=== PATIENT | female | born 1960 | race American Indian/Alaskan Native ===

== ENCOUNTER → 2019-05-23 10:01 | Outpatient (CLI) | payer OTHER, SELFPAY ==
--- NOTE | 2019-05-23 | DI.CT.S_ITS ---
PROCEDURE: CT ABDOMEN PELVIS WO/W CON INDICATIONS: Asymptomatic microscopic hematuria TECHNIQUE: Optional 5 mm thick noncontrast images acquired from the diaphragm to the symphysis pubis. After the administration of intravenous contrast, 5 mm thick images acquired from the diaphragm to the symphysis pubis after a 10-minute delay. 2 mm thick coronal and sagittal reformats were then performed of the kidneys and ureters. For radiation dose reduction, the following was used: automated exposure control, adjustment of mA and/or kV according to patient size. COMPARISON: None. FINDINGS: Image quality: Excellent. Lung bases: Lung bases are clear. Heart size is normal. Urinary system: Both kidneys are normal in size, without hydronephrosis or nephrolithiasis on pre-contrast images. No perinephric fat stranding. There is normal bilateral renal enhancement. Renal calyces appear normal in morphology when filled with contrast. Opacified portions of both ureters demonstrate normal caliber. Bladder wall thickness is normal. No calcified bladder stones. Other solid organs: Liver is normal in size and enhancement. Gallbladder is within normal limits. Biliary system is non dilated. Pancreas enhances normally. Spleen is normal in size and enhancement. Multiple small splenules are noted. No adrenal nodules. Peritoneum and bowel: Bowel loops demonstrate normal wall thickness and caliber. No free fluid or air. Appendix is visualized and is within normal limits. Sigmoid diverticulosis is seen, no CT evidence of acute diverticulitis. There is a small hiatal hernia. Nodes and vessels: No retroperitoneal or mesenteric adenopathy by size criteria. Aorta and inferior vena cava are normal in size. Abdominal wall: No ventral hernias. Pelvis: No pathologic free pelvic fluid. No inguinal hernias or adenopathy. No gross abnormality is seen in uterus and bilateral adnexa. Bones: No suspicious bony lesions. No vertebral body compression fractures. IMPRESSION: 1. No renal stone or hydronephrosis. No enhancing renal lesion. Normal appearing bilateral ureters or urinary bladder. 2. Small to moderate size hiatal hernia. No bowel obstruction. No free fluid or free air. Sigmoid diverticulosis, no CT evidence of acute diverticulitis. Dictated by: Masoud Thomas M.D. on 05/23/2019 at 14:45 Approved by: Masoud Thomas M.D. on 05/23/2019 at 14:47
== END ==
PROVIDERS: PCP Family Medicine; Visit Provider Family Medicine
DX: K44.9 Diaphragmatic hernia without obstruction or gangrene (principal)
CPT/HCPCS: 74178; Q9967

== ENCOUNTER 2019-07-13 13:29 | Emergency (ER) | payer OTHER, SELFPAY ==
[2019-07-13 13:32] VITALS: BP 95/61; PULSE 61; RESP 14; TEMP 36.2; O2SAT 97; BMI 25.6
[2019-07-13 15:00] VITALS: BP 94/68; PULSE 58; RESP 17; O2SAT 97
[2019-07-13] MEDS: KETOROLAC 60 MG/2 ML VIAL 30 MG IV (15:08)
[2019-07-13] MEDS: HYDROMORPHONE 0.5 MG INJ IV (15:08)
[2019-07-13 16:00] VITALS: BP 116/93; PULSE 57; RESP 18; O2SAT 97
--- NOTE | 2019-07-13 16:26 | ED.BACK ---
HPI - Back Pain/Injury General Chief Complaint: Back Pain/Injury Stated Complaint: Bent over and back went out Time Seen by Provider: 07/13/19 14:08 Source: patient Mode of arrival: EMS Limitations: no limitations History of Present Illness HPI Narrative: Patient complains of back pain after bending over to pull laundry out of the wash machine. She states that she felt as though her back got ?stuck? and she could not stand back up. She states she was able to get on her knees and lay on the floor. Patient denies loss of bowel or bladder control. No pain or numbness in her lower extremities. No abdominal pain or urinary issues. Patient has a history of low back problems. She states that the pain is on the right side in the lumbar region. Related Data Home Medications Medication Instructions Recorded Confirmed Probiotic 1 cap PO DAILY 07/13/19 07/13/19 Vitamin B-12 1 tab PO DAILY 07/13/19 07/13/19 Vitamin C 1 tab PO DAILY 07/13/19 07/13/19 fiber 1 tab PO DAILY 07/13/19 07/13/19 magnesium 1 tab PO DAILY 07/13/19 07/13/19 multivitamin 1 tab PO DAILY 07/13/19 07/13/19 Previous Rx's Medication Instructions Recorded hydrocodone-acetaminophen 1 tab PO Q4-6H PRN #8 tab 07/13/19 Allergies Allergy/AdvReac Type Severity Reaction Status Date / Time nitrofurantoin Allergy Verified 07/13/19 13:32 [From Macrobid] Sulfa (Sulfonamide Allergy Verified 07/13/19 13:32 Antibiotics) Review of Systems Constitutional Constitutional: Denies chills, Denies fatigue, Denies fever(s), Denies frequent falls, Denies lethargy and Denies weakness Eyes Eyes: Denies change in vision, Denies eye discharge, Denies irritation and Denies loss of vision ENT Ears, Nose, Mouth, and Throat: Denies change in voice, Denies dizziness, Denies neck pain, Denies sore throat and Denies throat swelling Cardiovascular Cardiovascular: Denies chest pain, Denies irregular heart rhythm, Denies lightheadedness, Denies palpitations, Denies dyspnea, Denies dyspnea on exertion and Denies orthopnea Respiratory Respiratory: Denies cough, Denies dyspnea, Denies dyspnea on exertion and Denies wheezing Gastrointestinal Gastrointestinal: Denies abdominal pain, Denies change in bowel habits, Denies diarrhea, Denies nausea and Denies vomiting Genitourinary Genitourinary: Denies hematuria, Denies flank pain, Denies urinary incontinence and Denies urinary urgency Musculoskeletal Musculoskeletal: Reports back pain, Denies muscle weakness, Denies neck pain, Denies numbness and Denies tingling Integumentary/Breasts Skin/Breast: Denies pruritus, Denies erythema, Denies rash and Denies wounds Neurologic Neurologic: Denies behavioral changes, Denies confusion, Denies dizziness, Denies frequent falls, Denies loss of vision, Denies numbness, Denies tingling and Denies weakness Psychiatric Psychiatric: Denies anxiety, Denies behavioral changes, Denies confusion, Denies depression, Denies homicidal ideation and Denies suicidal ideation Endocrine Endocrine: Denies fatigue, Denies flushing and Denies palpitations Hematologic/Lymphatic Hematologic/Lymphatic: Denies easy bruising Allergic/Immunologic Allergic/Immunologic: Denies urticaria, Denies throat swelling and Denies wheezing Patient History Medical History Back pain (Acute) Surgical History No pertinent past surgical history (Acute) Social History Smoking Status: Unknown if ever smoked Social History Smoking Status: Unknown if ever smoked alcohol intake frequency: holidays/special occasions only Substance Use Type: does not use Exam Initial Vital Signs Initial Vital Signs: Vital Signs Temperature 97.2 F L 07/13/19 13:32 Pulse Rate 61 07/13/19 13:32 Respiratory Rate 14 07/13/19 13:32 Blood Pressure 95/61 07/13/19 13:32 Pulse Oximetry 97 07/13/19 13:32 Const General: cooperative and well developed Nutritional Appearance: well nourished Orientation: alert, awake, oriented x3 and not confused [facility] Head: normocephalic and atraumatic Ears: external ears normal Nose: external nose normal and No nasal discharge Face and sinus: face symmetric and No dry mucous membranes Mouth: oral mucosae normal and moist mucous membranes Teeth and gingiva: dentition normal Eyes General: appearance normal, both eyes and all related structures Eyelids: eyelids normal Conjunctivae: conjunctivae normal Sclera: sclerae normal Pupils: PERRL EOM: EOM intact bilaterally Neck Neck: normal visual inspection, trachea midline, No lymphadenopathy, No midline deformity and No JVD Lymphatic: No lymphedema Chest Chest: normal inspection of the chest Resp Effort & Inspection: normal respiratory effort, able to speak in complete sentences, no respiratory distress and no use of accessory muscles Auscultation: clear to auscultation bilaterally, no rales, no rhonchi and no wheezes Cardio Rate: regular rate Rhythm: regular rhythm Heart Sounds: no click, no gallops, no murmurs and no rubs Pulses: normal peripheral pulses GI Inspection: non-distended Palpation: soft, no hepatosplenomegaly, No guarding, No pulsatile mass and No tender Auscultation: normal bowel sounds Back/Spine/Pelvis Back: No CVA tenderness Cervical Spine: cervical ROM normal and No pain with cervical ROM Other: No tenderness or step-off at any level the spine. Patient has tenderness over her right paraspinal musculature in the lumbar region. Skin General: no rashes or lesions noted, No jaundice and No petechiae Neuro General: alert, oriented x3, gait normal and no focal motor deficits Speech: speech normal Extrem General: full ROM, no clubbing, cyanosis or edema, no pedal edema and no calf tenderness Psych Appearance: well kempt Mental Status: mental status grossly normal Attitude: cooperative Thought Content: normal and suicidality Judgment: judgment good Course Course Course Narrative: Patient was treated symptomatically in the emergency department, after which found to be feeling better. We have discussed home management of symptoms, as well as the usual indications for return. I do not find evidence of an emergent cause or complication of the patient's back pain. Orders Ordered: Discontinued Medications Cyclobenzaprine HCl (Flexeril) 10 mg PO NOW ONE Stop: 07/13/19 16:33 Last Admin: 07/13/19 16:55 Dose: 10 mg Documented by: ROHINI Hydromorphone HCl (Dilaudid) 0.5 mg IV NOW ONE Stop: 07/13/19 14:51 Last Admin: 07/13/19 15:08 Dose: 0.5 mg Documented by: KBARNHA Hydromorphone HCl (Dilaudid) 0.5 mg IV NOW ONE Stop: 07/13/19 16:33 Last Admin: 07/13/19 16:58 Dose: Not Given Documented by: ROHINI Hydromorphone HCl (Dilaudid) 0.5 mg IM NOW ONE Stop: 07/13/19 16:57 Last Admin: 07/13/19 16:57 Dose: 0.5 mg Documented by: ROHINI Ketorolac Tromethamine (Toradol) 30 mg IV NOW ONE Stop: 07/13/19 14:51 Last Admin: 07/13/19 15:08 Dose: 30 mg Documented by: ROHINI Vital Signs Vital signs: Vital Signs - 8 hr 07/13/19 13:32 07/13/19 15:00 07/13/19 16:00 Temperature 97.2 F L Pulse Rate 61 58 L 57 L Respiratory Rate 14 17 18 Blood Pressure 95/61 Blood Pressure [Left Arm] 94/68 116/93 H Pulse Oximetry 97 97 97 07/13/19 17:00 Temperature Pulse Rate 56 L Respiratory Rate 16 Blood Pressure Blood Pressure [Left Arm] 127/77 Pulse Oximetry 97 MDM - Back Pain/Injury Medical Records Attestation: I reviewed the patient's medical records. Discharge Plan Departure Patient Disposition: Home Clinical Impression: Strain of lumbar region Qualifiers: Encounter type: initial encounter Qualified Code(s): S39.012A - Strain of muscle, fascia and tendon of lower back, initial encounter Discharge Date/Time: 07/13/19 17:30 Instructions: DI for Back Strain or Sprain Prescriptions: New hydrocodone-acetaminophen 5-325 mg tablet 1 tab PO Q4-6H PRN (Reason: pain) Qty: 8 RF: 0 No Action multivitamin Tablet 1 tab PO DAILY RF: 0 Probiotic 1 cap PO DAILY RF: 0 Vitamin B-12 1 tab PO DAILY RF: 0 Vitamin C 1 tab PO DAILY RF: 0 fiber 1 tab PO DAILY RF: 0 magnesium 1 tab PO DAILY RF: 0 Referrals: Swetha Gary MD [Primary Care Provider] -
[2019-07-13] MEDS: CYCLOBENZAPRINE 10 MG TABLET PO (16:55)
[2019-07-13] MEDS: HYDROMORPHONE 1 MG INJ 0.5 MG IM (16:57)
[2019-07-13 17:00] VITALS: BP 127/77; PULSE 56; RESP 16; O2SAT 97
== END 2019-07-13 17:30 | disposition home or self-care (01) ==
PROVIDERS: Emergency Provider Emergency Medicine; PCP Family Medicine
DX: S39.012A Strain of muscle, fascia and tendon of lower back, initial encounter (principal); X50.1XXA Overexertion from prolonged static or awkward postures, initial encounter
CPT/HCPCS: 96372; 96374; 96375; 99283; 99284; J1170; J1885

== ENCOUNTER 2019-11-11 16:00 | Emergency (ER) | payer OTHER, SELFPAY ==
[2019-11-11 16:07] VITALS: BP 133/84; PULSE 72; RESP 18; TEMP 37; O2SAT 99; BMI 25.6
[2019-11-11 16:50] LABS: Appearance Urine UA CLOUDY; Bilirubin Urine UA NEGATIVE (NEGATIVE); Color Urine UA YELLOW; Glucose Urine UA NEGATIVE (Negative); Ketones Urine UA NEGATIVE (NEGATIVE); Leukocyte Esterase Urine UA 3+ (NEGATIVE); Nitrite Urine UA POSITIVE (Negative); Occult Blood Urine UA 2+ (Negative); Protein Urine UA TRACE (Negative); Urobilinogen Urine UA 0.2 E.U./dL (0.2)
[2019-11-11 16:51] LABS: pH Urine UA 6.5 (4.5-8.0)
[2019-11-11 16:56] LABS: Amorphous Sediment Urine 1+; Bacteria Urine Few (2-10); Culture Indicated Urine Specimen Cultured; Mucus Urine 1+ (Negative); RBC Urine 1-5/HPF (0-5/HPF); Squamous Epithelial Cell Urine 0-1 /HPF (0-5/HPF); WBC Urine >100/HPF (0-5/HPF)
[2019-11-11] MEDS: CIPROFLOXACIN 250 MG TABLET PO (19:49)
--- NOTE | 2019-11-12 03:22 | ED_ITS ---
HPI - Female Genitourinary <RANDALL Colmenares - Last Filed: 11/12/19 03:34> General Chief complaint: Urogenital-Female Stated complaint: states getting a UTI Time Seen by Provider: 11/11/19 17:22 Source: patient Mode of arrival: Family Vehicle Limitations: no limitations History of Present Illness HPI Narrative: This is a 59-year-old female, former smoker, who presents to ED with her significant other with chief complain of UTI symptoms such as suprapubic discomfort with dysuria and urinary frequency which initially started when she woke up this morning. She had taken Pyridium this morning. Patient denies fever, chills, nausea, vomiting, flank pain, urinary retention or hematuria. Patient states had recent UTI about 10 days ago and had completed Cipro for 3 days and she received a phone call from the clinic that the medication is to be changed to amoxicillin K. however after a dose patient had diarrhea and stop taking the medications. Patient has multiple allergies to antibiotic medications include patient reports nitrofurantoin, sulfa, amoxicillin, cephalexin, Clavulanic acid. Patient reports after completing 3 day course of Cipro she felt good. Patient is currently menopausal state. Reports has frequent UTI and the other UTI was about 4-5 months ago. Related Data Home Medications Medication Instructions Recorded Confirmed Probiotic 1 cap PO DAILY 07/13/19 07/13/19 Vitamin B-12 1 tab PO DAILY 07/13/19 07/13/19 Vitamin C 1 tab PO DAILY 07/13/19 07/13/19 fiber 1 tab PO DAILY 07/13/19 07/13/19 magnesium 1 tab PO DAILY 07/13/19 07/13/19 multivitamin 1 tab PO DAILY 07/13/19 07/13/19 Previous Rx's Medication Instructions Recorded hydrocodone-acetaminophen 1 tab PO Q4-6H PRN #8 tab 07/13/19 ciprofloxacin HCl [Cipro] 250 mg PO Q12H 5 Days #10 tab 11/11/19 Allergies Allergy/AdvReac Type Severity Reaction Status Date / Time clindamycin Allergy Unknown Verified 11/11/19 16:17 metronidazole Allergy Unknown Verified 11/11/19 16:17 nitrofurantoin Allergy Verified 11/11/19 16:17 [From Macrobid] Sulfa (Sulfonamide Allergy Verified 07/13/19 13:32 Antibiotics) acetaminophen [From Vicodin] AdvReac Nausea Verified 11/11/19 16:17 amoxicillin [From Augmentin] AdvReac Diarrhea Verified 11/11/19 16:14 cephalexin AdvReac Diarrhea Verified 11/11/19 16:14 clavulanic acid AdvReac Diarrhea Verified 11/11/19 16:14 [From Augmentin] hydrocodone [From Vicodin] AdvReac Nausea Verified 11/11/19 16:17 Review of Systems <Bg Slade [facility] - Last Filed: 11/12/19 03:34> Review of Systems Narrative: General: Denies fever, chills, fatigue, malaise, sweats. HEENT: Denies sinus pain, ear pain, sore throat, difficulty swallowing, dizziness. Respiratory: Denies dyspnea, cough, wheezing, hemoptysis, sputum. Cardiovascular: Denies chest pain, palpitations, orthopnea, edema. Gastrointestinal: Denies nausea, vomiting, (+) suprapubic pain, abdominal pain, diarrhea, constipation, melena. : See HPI Musculoskeletal: Denies weakness, joint pain or bony pain. Skin: Denies rash, skin lesions, or other. Neurologic: Denies weakness, headache, numbness, change in speech, confusion, seizures, incoordination. Psychiatric: No concerning psychosocial issues. 12-point review of systems is negative except for those stated above. Patient History <Bg Slade [facility] - Last Filed: 11/12/19 03:34> alcohol intake frequency: 0-2 drinks per day Substance Use Type: does not use Exam <Bg Slade [facility] Last Filed: 11/12/19 03:34> Narrative Exam Narrative: General appearance: well developed, well nourished, in no acute distress. Head: normocephalic, atraumatic, no scalp lesions, non-tender. ENT: Mucous membrane moist, no mucosal lesion. Throat without erythema, tonsillar hypertrophy or exudate. Uvula in midline, airway patent. Neck/Thyroid: neck supple, full range of motion, no visible masses or meningeal signs. No JVD, non-tender without lymphadenopathy. Skin: no suspicious rashes, lesions over visible areas. Warm and dry and appropriate color for ethnicity. Heart: no clubbing, no cyanosis, no edema. S1 and S2 normal. RRR w/o murmurs, clicks, or bruits. Lungs: Breathing even and unlabored. No stridor. No accessory muscles used. Able to speak in full sentences. Chest: normal shape and expansion. Abdomen: Mild suprapubic tenderness to palpate. Non-obese, non-distended. Back: No spine tenderness, no CVA tenderness to percuss. Neurologic: alert and oriented. Cognitive exam, [employer] and PNS grossly intact on informal exam. Psych: good eye contact, normal affect. Initial Vital Signs Initial Vital Signs: Vital Signs Temperature 98.6 F 11/11/19 16:07 Pulse Rate 72 11/11/19 16:07 Respiratory Rate 18 11/11/19 16:07 Blood Pressure 133/84 11/11/19 16:07 Pulse Oximetry 99 11/11/19 16:07 <Ori Alfaro DO - Last Filed: 11/12/19 06:12> Initial Vital Signs Initial Vital Signs: Vital Signs Temperature 98.6 F 11/11/19 16:07 Pulse Rate 72 11/11/19 16:07 Respiratory Rate 18 11/11/19 16:07 Blood Pressure 133/84 11/11/19 16:07 Pulse Oximetry 99 11/11/19 16:07 Scores <RANDALL Colmenares - Last Filed: 11/12/19 03:34> GCS [place] coma scale eye opening: Spontaneous [place] coma scale verbal response: Orientated Jaden coma scale motor response: Obey commands [place] coma scale total score: 15 Course <RANDALL Colmenares - Last Filed: 11/12/19 03:34> Orders Ordered: Discontinued Medications Ciprofloxacin (Cipro) 250 mg PO NOW ONE Stop: 11/11/19 19:33 Last Admin: 11/11/19 19:49 Dose: 250 mg Documented by: KANU <Ori Alfaro DO - Last Filed: 11/12/19 06:12> Orders Ordered: Discontinued Medications Ciprofloxacin (Cipro) 250 mg PO NOW ONE Stop: 11/11/19 19:33 Last Admin: 11/11/19 19:49 Dose: 250 mg Documented by: KANU MDM - Female Genitourinary <RANDALL Colmenares - Last Filed: 11/12/19 03:34> Differential Diagnosis Differential diagnosis: Likely urinary tract infection and other (Pyelonephritis) Medical Records Attestation: I reviewed the patient's medical records. Lab Data Attestation: I reviewed the patient's lab results. Labs: Lab Results 11/11/19 Range/Units 16:35 Urine Color Yellow Urine Appearance Cloudy Urine pH 6.5 (4.5-8.0) Ur Specific [place] 1.010 (1.000-1.035) Urine Protein Trace H (Negative) Urine Glucose (UA) Negative (Negative) g/dL Urine Ketones Negative (NEGATIVE) Urine Occult Blood 2+ H (Negative) Urine Nitrate Positive (Negative) Urine Bilirubin Negative (NEGATIVE) Urine Urobilinogen 0.2 (0.2) E.U./dL Ur Leukocyte Esterase 3+ H (NEGATIVE) Urine RBC 1-5/hpf (0-5/HPF) Urine WBC >100/hpf H (0-5/HPF) Ur Squamous Epith Cells 0-1 /hpf (0-5/HPF) Amorphous Sediment 1+ Urine Bacteria Few (2-10) H (None) Urine Mucus 1+ H (Negative) Ur Culture Indicated? Specimen cultured MDM Narrative Medical decision making narrative: UA showed positive trace protein, 2+ occult blood, 3+ urine leukocyte esterase, and positive nitrate. Urine WBC was greater than 100/hpf with urine bacteria and mucus. Urine was yellow and cloudy in appearance. Urine culture is pending at this time. Patient does not appears to be toxic, afebrile with stable vital signs. Due to patient has multiple antibiotic medications to treat UTI, patient discharged to home with Cipro for 5 day course and is informed patient will get a phone call with the culture result if patient needs different antibiotic medication coverage. We do not have previous urine culture results in our record since patient 6 her care at [facility]. Return precautions were discussed with patient and verbalized understanding and in agree mental with the treatment plan. <Ori Alfaro, - Last Filed: 11/12/19 06:12> Lab Data Labs: Lab Results 11/11/19 Range/Units 16:35 Urine Color Yellow Urine Appearance Cloudy Urine pH 6.5 (4.5-8.0) Ur Specific [place] 1.010 (1.000-1.035) Urine Protein Trace H (Negative) Urine Glucose (UA) Negative (Negative) g/dL Urine Ketones Negative (NEGATIVE) Urine Occult Blood 2+ H (Negative) Urine Nitrate Positive (Negative) Urine Bilirubin Negative (NEGATIVE) Urine Urobilinogen 0.2 (0.2) E.U./dL Ur Leukocyte Esterase 3+ H (NEGATIVE) Urine RBC 1-5/hpf (0-5/HPF) Urine WBC >100/hpf H (0-5/HPF) Ur Squamous Epith Cells 0-1 /hpf (0-5/HPF) Amorphous Sediment 1+ Urine Bacteria Few (2-10) H (None) Urine Mucus 1+ H (Negative) Ur Culture Indicated? Specimen cultured Discharge Plan Departure Patient Disposition: Home Clinical Impression: Urinary tract infection Qualifiers: Urinary tract infection type: site unspecified Hematuria presence: with hematuria Qualified Code(s): N39.0 - Urinary tract infection, site not specified Discharge Date/Time: 11/11/19 19:52 Instructions: DI for Urinary Tract Infection (UTI) Activity Restrictions/Additional Instructions: You have been diagnosed with [UTI. Urine culture is pending at this time. Since he had multiple medication allergies to antibiotic medication will treat you with Cipro at this time. You will get a phone call from us if this medication is not appropriate for the coverage.]. What to do: *Take your medications as directed. Please hydrate adequately. You can take Pyridium that you have at home for discomfort with urination. *Follow up with your primary care provider in 2-3 days, call for an appointment. Let them know you were seen in the ED and that we asked you to be seen in follow up. *Return to ED if you have any new, worsening, or concerning symptoms, such as [fever, back pain, unable to tolerate fluids, chest pain, breathing difficulty, feeling fatigue or any acute concerns]. Prescriptions: New ciprofloxacin HCl [Cipro] 250 mg tablet 250 mg PO Q12H 5 Days Qty: 10 RF: 0 No Action multivitamin Tablet 1 tab PO DAILY RF: 0 Probiotic 1 cap PO DAILY RF: 0 Vitamin B-12 1 tab PO DAILY RF: 0 Vitamin C 1 tab PO DAILY RF: 0 fiber 1 tab PO DAILY RF: 0 magnesium 1 tab PO DAILY RF: 0 hydrocodone-acetaminophen 5-325 mg tablet 1 tab PO Q4-6H PRN (Reason: pain) Qty: 8 RF: 0 Referrals: Swetha Gary MD [Primary Care Provider] -
== END 2019-11-11 19:52 | disposition home or self-care (01) ==
PROVIDERS: Emergency Medicine; Emergency Provider Nurse Practitioner Family; PCP Family Medicine
DX: N39.0 Urinary tract infection, site not specified (principal)
CPT/HCPCS: 81001; 87077; 87086; 87186; 99283

== ENCOUNTER → 2021-08-12 13:42 | Outpatient (CLI) | payer OTHER, SELFPAY ==
--- NOTE | 2021-08-12 | DI.MG.S_ITS ---
BILATERAL DIGITAL SCREENING MAMMOGRAM 3D/2D WITH CAD: 08/12/2021 CLINICAL: Routine screening. Comparison is made to exams dated: 01/31/2015 mammogram - [facility] and 03/16/2006 mammogram - [facility]. There are scattered fibroglandular elements in both breasts. Current study was also evaluated with a Computer Aided Detection (CAD) system. No significant masses, calcifications, or other findings are seen in either breast. There has been no significant interval change. IMPRESSION: NEGATIVE There is no mammographic evidence of malignancy. A 1 year screening mammogram is recommended. This exam was interpreted at Station ID: [id number]. NOTE: For mammograms, a report in lay terms will be sent to the patient. Approximately 15% of breast malignancies will not be visualized mammographically. In the management of a palpable breast mass, a negative mammogram must not discourage biopsy of a clinically suspicious lesion. Electronically Signed By: Tiffani salcido/nikolas:08/12/2021 14:35:59 letter sent: Normal Exam ACR BI-RADS Category 1: Negative [id number]
== END ==
PROVIDERS: PCP Family Medicine; Referring Provider Family Medicine; Visit Provider Family Medicine
DX: Z12.31 Encounter for screening mammogram for malignant neoplasm of breast (principal)
CPT/HCPCS: 77063; 77067

== ENCOUNTER → 2024-01-24 16:47 | Outpatient (CLI) | payer OTHER, SELFPAY ==
--- NOTE | 2024-01-24 16:48 | DI.MG.S_ITS ---
BILATERAL DIGITAL SCREENING MAMMOGRAM 3D/2D WITH CAD: 01/24/2024 CLINICAL: Routine screening. Family History of Breast Cancer. Comparison is made to exams dated: 08/12/2021 mammogram - [facility], 02/04/2017 mammogram, and 01/31/2015 mammogram - [facility]. There are scattered areas of fibroglandular density in both breasts (category b / 25%-50% glandular tissue). Current study was also evaluated with a Computer Aided Detection (CAD) system. No significant masses, calcifications, or other findings are seen in either breast. There has been no significant interval change. IMPRESSION: NEGATIVE There is no mammographic evidence of malignancy. A 1 year screening mammogram is recommended. Based on the Tyrer Cuzick model (a risk assessment model) the patient's lifetime risk is 4.2% and her 10 year risk is 1.9%. According to the ACR, ACS, and NCCN guidelines, an annual breast MRI exam along with mammogram is recommended if the patient's lifetime risk is 20% or greater. This exam was interpreted at Station ID: Unknown. NOTE: For mammograms, a report in lay terms will be sent to the patient. Approximately 15% of breast malignancies will not be visualized mammographically. In the management of a palpable breast mass, a negative mammogram must not discourage biopsy of a clinically suspicious lesion. Electronically Signed By: Landon leigh/nikolas:01/25/2024 11:05:51 letter sent: Normal Exam ACR BI-RADS Category 1: Negative [id number]
== END ==
PROVIDERS: PCP Family Medicine; Referring Provider Family Medicine; Visit Provider Family Medicine
DX: Z12.31 Encounter for screening mammogram for malignant neoplasm of breast (principal); Z80.3 Family history of malignant neoplasm of breast; R92.323 Mammographic fibroglandular density, bilateral breasts
CPT/HCPCS: 77063; 77067

== ENCOUNTER → 2024-03-31 11:11 | Outpatient (CLI) | payer OTHER, SELFPAY ==
--- NOTE | 2024-03-31 11:14 | DI.CT.S_ITS ---
PROCEDURE: CT ABDOMEN PELVIS W CON INDICATIONS: Unilateral inguinal hernia, TECHNIQUE: After the administration of intravenous contrast, axial sections acquired from the lung bases to the pubic symphysis. Coronal and sagittal reformats were performed. For radiation dose reduction, the following was used: automated exposure control, adjustment of mA and/or kV according to patient size. COMPARISON: None. FINDINGS: Image quality: Diagnostic. Lower Chest: No significant findings. ABDOMEN: Liver: No solid mass. Gallbladder: No radiopaque gallstones or wall thickening. Biliary ducts: No biliary dilation. Pancreas: No ductal dilation. Spleen: Size is within normal limits. Adrenal Glands: No adrenal nodules. Kidneys and Ureters: No hydronephrosis. No solid mass. No complex renal cystic lesion which requires follow up. Stomach and Bowel: Mild wall thickening of the sigmoid colon, without pericolonic fat stranding. Extensive diverticular disease. Peritoneum: No abnormal intraperitoneal fluid. No free air. Ventral Wall: Small umbilical hernia containing fat. Abdominal Nodes: No retroperitoneal or mesenteric adenopathy by size criteria. Vessels: Aorta and inferior vena cava are normal in size. PELVIS: Pelvic Organs: Unremarkable. Bladder: No bladder wall thickening, accounting for underdistention. Pelvic Nodes: No enlarged lymph nodes. Miscellaneous: No inguinal hernias are seen. Bones: No aggressive osseous abnormality. IMPRESSION: No inguinal hernia identified. Small umbilical hernia containing fat. Wall thickening of the sigmoid colon without pericolonic fat stranding. Differential includes mild colitis or chronic diverticulitis. Dictated by: Colin Mckeon M.D. on 03/31/2024 at 14:16 Approved by: Colin Mckeon M.D. on 03/31/2024 at 14:20
[2024-03-31 11:47] LABS: Estimated Glomerular Filt Rate > 60 mL/min (>60)
== END ==
PROVIDERS: Radiology Diagnostic Radiology; PCP Family Medicine; Referring Provider Family Medicine; Visit Provider Family Medicine
DX: K40.90 Unilateral inguinal hernia, without obstruction or gangrene, not specified as recurrent (principal); K42.9 Umbilical hernia without obstruction or gangrene
CPT/HCPCS: 36415; 74177; 82565; Q9967

== ENCOUNTER → 2024-12-22 11:47 | Outpatient (CLI) | payer MEDICARE, OTHER, SELFPAY ==
--- NOTE | 2024-12-22 11:51 | DI.RAD.S_ITS ---
PROCEDURE: XR DEXA AXIAL SKELETON INDICATIONS: ASYMPTOMATIC MENOPAUSAL STATE COMPARISON: None. FINDINGS: Lumbar Spine: Bone mineral density 0.819 g/cm2, T score -2.1. Left Femoral Neck: Bone mineral density 0.540 g/cm2, T score -2.8. Left Hip: Bone mineral density 0.692 g/cm2, T score -2.0. Fracture Risk Calculation (when applicable): 10-year fracture risk of a major osteoporotic fracture 14 percent and of a hip fracture 3.2 percent. (T score greater or equal to -1.0 to: NORMAL) (T score from -1.1 to -2.4: OSTEOPENIA) (T score less than or equal to -2.5: OSTEOPOROSIS) IMPRESSION: Osteoporosis--- recommend repeat DEXA in 2 years or less for reassessment of response to treatment. Follow-up guidelines as follows: Osteoporosis: Consider a repeat DEXA and Vertebral Fracture Assessment (VFA) exam in 2 years or sooner if medically necessary, to reassess this patient's status. Osteopenia: Consider a repeat DEXA in 2-3 years to reassess this patient's status, or if there is a new clinical indication. Normal: Consider a repeat DEXA in 5 years or sooner, or if there is a new clinical indication. All treatment decisions require clinical judgment and consideration of individual patient factors, including patient preferences, comorbidities, previous drug use, risk factors not captured in the FRAX model (e.g., frailty, falls, vitamin D deficiency, increased bone turnover, interval significant decline in bone density ) and possible under- or over-estimation of fracture risk by FRAX. In addition, the NOF Guide recommends that FDA-approved medical therapies be considered in postmenopausal women and men age >= 50 years with a: * Hip or vertebral (clinical or morphometric) fracture * T-score of <=-2.5 at the spine or hip * Ten-year fracture probability by FRAX of >= 3% for hip fracture or >=20% for major osteoporotic fracture. Dictated by: Aj Ruffin M.D. on 12/22/2024 at 19:08 Approved by: Aj Ruffin M.D. on 12/22/2024 at 19:10
== END ==
LOC: RAD 11:50
PROVIDERS: PCP Family Medicine; Referring Provider Family Medicine; Visit Provider Family Medicine
DX: Z78.0 Asymptomatic menopausal state (principal); M81.0 Age-related osteoporosis without current pathological fracture
CPT/HCPCS: 77080

== ENCOUNTER → 2025-03-26 11:10 | Outpatient (CLI) | payer MEDICARE, OTHER, SELFPAY ==
--- NOTE | 2025-03-26 11:13 | DI.CT.S_ITS ---
PROCEDURE: CT HEAD/BRAIN WO CON INDICATIONS: New onset headaches/ annual screening TECHNIQUE: Noncontrast 4.5 mm thick angled axial sections acquired from the foramen magnum to the vertex, with coronal and sagittal reformats. For radiation dose reduction, the following was used: automated exposure control, adjustment of mA and/or kV according to patient size. COMPARISON: None. FINDINGS: Image quality: Diagnostic. CSF spaces: Basal cisterns are patent. No extra-axial fluid collections. Ventricles are normal in size and shape. Brain: No midline shift. No intracranial mass effect or hemorrhage. Harkins- white matter interface is normal. Skull and face: Calvarium and visualized facial bones are intact, without suspicious lesions. Sinuses: Visualized sinuses and mastoids are clear. IMPRESSION: No acute intracranial pathology. Dictated by: Lanny Schmidt M.D. on 03/26/2025 at 14:17 Approved by: Lanny Schmidt M.D. on 03/26/2025 at 14:17
== END ==
PROVIDERS: PCP Family Medicine; Referring Provider Family Medicine; Visit Provider Family Medicine
DX: G44.52 New daily persistent headache (NDPH) (principal)
CPT/HCPCS: 70450

== ENCOUNTER → 2025-04-02 14:43 | Outpatient (CLI) | payer MEDICARE, OTHER, SELFPAY ==
--- NOTE | 2025-04-02 14:47 | DI.MG.S_ITS ---
MM screening mammo BI: 04/02/2025. BI-RADS: 1 CLINICAL: 65-year old female for bilateral screening mammogram. Tyrer-Cuzick lifetime risk of 3.6%. No personal or first-degree family history of breast cancer. PRIOR EXAMS 01/24/2024, 08/12/2021, 03/17/2017. MAMMOGRAPHY TECHNIQUE: 2D and 3D (tomosynthesis) digital mammographic views obtained, with additional images as needed for full coverage. Current study was also evaluated with a Computer Aided Detection (CAD) system. DENSITY B. There are scattered areas of fibroglandular density. MAMMOGRAPHY FINDINGS Bilateral: No suspicious mass, asymmetry, microcalcification, or other abnormality seen. No significant change from comparison. IMPRESSION: * No evidence of malignancy. RECOMMENDATIONS Bilateral * Annual screening mammography. OVERALL ASSESSMENT CATEGORY BI-RADS-1: Negative. The [employer] recommends annual screening mammography beginning at age 40 for women with average risk of breast cancer. ELECTRONICALLY SIGNED: Danii Diaz M.D. on 04/02/2025 at 11:51:49 PM PT Interpreting Station ID: [id number]
== END ==
PROVIDERS: PCP Family Medicine; Referring Provider Family Medicine; Visit Provider Family Medicine
DX: Z12.31 Encounter for screening mammogram for malignant neoplasm of breast (principal); G44.52 New daily persistent headache (NDPH)
CPT/HCPCS: 77063; 77067

== ENCOUNTER 2025-06-28 15:01 | Emergency (ER) | payer MEDICARE, OTHER, SELFPAY ==
[2025-06-28 15:06] VITALS: BP 145/66; PULSE 82; RESP 18; TEMP 36.9; O2SAT 99; BMI 26.3
[2025-06-28 15:33] LABS: Add Manual Diff / Slide Review NO; Hematocrit 34.0 % (36-46); Hemoglobin 11.8 g/dL (12.0-16.0); Lymphocytes Absolute Auto 1900 /uL (1100-4500); Mean Corpuscular HGB Conc 34.6 % (30-36); Mean Corpuscular Hemoglobin 29.5 PG (26-34); Mean Corpuscular Volume 85.4 fL (80-100); Platelet Count 352 X10^3/uL (150-400)
[2025-06-28 15:44] LABS: Alanine Aminotransferase 16 IU/L (<35); Albumin 4.6 g/dL (3.5-5.0); Albumin Globulin Ratio 1.1 (1.0-2.8); Alkaline Phosphatase 99 U/L (38-126); Blood Urea Nitrogen 13 mg/dL (7-17); Calcium 9.3 mg/dL (8.4-10.2); Carbon Dioxide 24 mmol/L (22-32); Chloride 101 mmol/L (98-107); Estimated Glomerular Filt Rate > 60 mL/min (>60); Globulin 4.2 g/dL (1.7-4.1); Glucose 101 mg/dL (70-99); HEMOLYSIS < 15 (0-50); Lipase 73 U/L (23-300); Potassium 3.8 mmol/L (3.4-5.1); Sodium 138 mmol/L (137-145); Total Protein 8.8 g/dL (6.3-8.2)
[2025-06-28 17:16] LABS: Culture Indicated Urine Specimen Cultured
[2025-06-28 18:41] VITALS: BP 148/74; PULSE 100; RESP 20; TEMP 36.8; O2SAT 98
[2025-06-28 20:21] VITALS: PULSE 90; O2SAT 99
[2025-06-28 20:22] VITALS: BP 152/67; PULSE 84; O2SAT 100
--- NOTE | 2025-06-28 20:52 | ED.ABDPAIN ---
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 She says she has had exacerbation/recurrence of her ?diverticulitis? symptoms over the last week or so and was seen by her doctor twice and started on Augmentin 6 days ago and then developed diarrhea. The pain was in the lower abdomen and is now in her rectum. She has had a decreased appetite but no fever. Nausea but no vomiting. Related Data Home Medications ?Medication ?Instructions ?Recorded ?Confirmed Probiotic 1 cap PO DAILY 07/13/19 03/22/24 Vitamin B-12 1 tab PO DAILY 07/13/19 03/22/24 Vitamin C 1 tab PO DAILY 07/13/19 03/22/24 fiber 1 tab PO DAILY 07/13/19 03/22/24 magnesium 1 tab PO DAILY 07/13/19 03/22/24 multivitamin 1 tab PO DAILY 07/13/19 03/22/24 Previous Rx's ?Medication ?Instructions ?Recorded lidocaine 4 % topical gel 1 applic topical QD-BID PRN pain 11/13/21 #30 grams clobetasol 0.05 % topical ointment 1 applic topical .COMPLEX #30 grams 06/25/25 estradiol 0.01% (0.1 mg/gram) 0.5 appful vaginal 4XW #42.5 grams 06/25/25 vaginal cream Allergies Allergy/AdvReac Type Severity Reaction Status Date / Time clindamycin Allergy Unknown Verified 03/22/24 08:39 metronidazole Allergy Unknown Verified 03/22/24 08:39 nitrofurantoin (From Allergy Verified 03/22/24 08:39 Macrobid) Sulfa (Sulfonamide Allergy Verified 03/22/24 08:39 Antibiotics) hydrocodone AdvReac Mild Nausea Verified 06/28/25 15:07 amoxicillin (From Augmentin) AdvReac Diarrhea Verified 03/22/24 08:39 cephalexin AdvReac Diarrhea Verified 03/22/24 08:39 clavulanic acid (From AdvReac Diarrhea Verified 03/22/24 08:39 Augmentin) Review of Systems Review of Systems ROS Unobtainable: All systems reviewed & are unremarkable except as noted in HPI and below Gastrointestinal Gastrointestinal: Reports as per HPI Patient History Medical History (Updated 06/28/25 @ 22:06 by Stephen Ordaz MD) Hearing loss Allergies Anxiety Back pain Surgical History No pertinent past surgical history Family History (Updated 04/21/20 @ 20:15 by Zuleika Kline) Father Cancer Mother History of blood clots Brother Diabetes mellitus Hypertension Hyperlipidemia COPD (chronic obstructive pulmonary disease) Brother Hyperlipidemia Sister History of heart disease Kidney disease Social History Smoking Status: Never smoker Smoking Status: Never smoker alcohol intake frequency: 0-2 drinks per day Exam Narrative Exam Narrative: General: Alert and conversant. Mild distress. Appears well nourished and well hydrated Lungs: Clear to auscultation with good air movement. No wheezing, rales or rhonchi. No respiratory distress Cardiac: Regular rate and rhythm with no appreciable murmur or gallop Abdomen: Soft, nontender with no distention or masses. Normal bowel sounds. No rebound or guarding Rectal: Mild irritation/inflammation but no masses, abscess, fissure or hemorrhoid. Normal tone. Musculoskeletal: Exam of the extremities, axial spine and ribcage reveals no deformity, bony tenderness or swelling. Range of motion intact Neuro: Alert and oriented. Cranial nerves, motor, sensory and cerebellar all grossly intact. No focal deficit Skin: Warm and normal color. No rashes Psychological: Normal affect and interaction. No evidence of delusion or psychosis. Normal mood. Initial Vital Signs Initial Vital Signs: Vital Signs Temperature 98.4 F 06/28/25 15:06 Pulse Rate 82 06/28/25 15:06 Respiratory Rate 18 06/28/25 15:06 Blood Pressure 145/66 H 06/28/25 15:06 Pulse Oximetry 99 06/28/25 15:06 Oxygen Delivery Method Room Air 06/28/25 15:06 Course Orders Ordered: ED Orders 06/28/25 15:20 Complete Blood Count AUTO DIFF Stat Comprehensive Metabolic Panel Stat Lipase Stat 06/28/25 16:34 Urine Culture Stat Urine Microscopic Stat Ondansetron HCl (Ondansetron 4 Mg/2 Ml Inj) 4 mg IV NOW PRN PRN Reason: Nausea And Vomiting Ondansetron HCl (Ondansetron 4 Mg Odt) 4 mg PO NOW PRN PRN Reason: Nausea And Vomiting Discontinued Medications Hydrocodone Bitart/Acetaminophen (Hydrocodone/Acet 5/325 Prepack) 1 bottle MISC DIRECTED ONE Stop: 06/28/25 22:04 Vital Signs Vital signs: Vital Signs - 8 hr 06/28/25 15:06 06/28/25 18:41 06/28/25 20:21 Temperature 98.4 F 98.3 F Pulse Rate 82 100 H 90 Respiratory Rate 18 20 Blood Pressure 145/66 H 148/74 H Pulse Oximetry 99 98 99 Oxygen Delivery Method Room Air Room Air 06/28/25 20:22 06/28/25 20:22 Temperature Pulse Rate 84 Respiratory Rate Blood Pressure 152/67 H Pulse Oximetry 100 Oxygen Delivery Method MDM - Abdominal Pain Lab Data Attestation: I reviewed the patient's lab results. 06/28/25 15:20 06/28/25 15:20 Labs: Lab Results 06/28/25 06/28/25 Range/Units 15:20 16:34 WBC 11.8 H (4.5-11.0) X10^3/uL RBC 3.98 L (4.0-5.2) X10^6/uL Hgb 11.8 L (12.0-16.0) g/dL Hct 34.0 L (36-46) % MCV 85.4 (80-100) fL MCH 29.5 (26-34) PG MCHC 34.6 (30-36) % RDW 12.5 (11.6-14.8) % Plt Count 352 (150-400) X10^3/uL Neut % (Auto) 77.3 H (50-75) % Lymph % (Auto) 15.8 L (25-40) % Butts % (Auto) 6.0 (3-14) % Eos % (Auto) 0.2 L (2-4) % Baso % (Auto) 0.7 (0-2) % Neut # (Auto) 9100 H (1672-6684) /uL Lymph # (Auto) 1900 (6824-5913) /uL Butts # (Auto) 700 (0-900) /uL Eos # (Auto) 0 (0-450) /uL Baso # (Auto) 100 (0-100) /uL Sodium 138 (137-145) mmol/L Potassium 3.8 (3.4-5.1) mmol/L Chloride 101 (98-107) mmol/L Carbon Dioxide 24 (22-32) mmol/L BUN 13 (7-17) mg/dL Creatinine 0.95 (0.52-1.04) mg/dL Estimated GFR > 60 (>60) mL/min BUN/Creatinine Ratio 13.7 (6-22) Glucose 101 H (70-99) mg/dL Calcium 9.3 (8.4-10.2) mg/dL Total Bilirubin 0.6 (0.2-1.3) mg/dL AST 28 (14-36) IU/L ALT 16 (<35) IU/L Alkaline Phosphatase 99 (38-126) U/L Total Protein 8.8 H (6.3-8.2) g/dL Albumin 4.6 (3.5-5.0) g/dL Globulin 4.2 H (1.7-4.1) g/dL Albumin/Globulin Ratio 1.1 (1.0-2.8) Lipase 73 (23-300) U/L Urine RBC None seen (0-5/HPF) Urine WBC 5-10/hpf H (0-5/HPF) Ur Squamous Epith Cells 1-5 /hpf (0-5/HPF) Ur Transition Epith Cell 1-5/hpf (0-5/HPF) Ur Renal Epithelial Cell 1-5/hpf H (0-1/HPF) Urine Bacteria Occasional (0-1) (None) Ur Culture Indicated? Specimen cultured Vol Urine Centrifuged 10ml (spun) Point of care testing: Urine Dip Bedside Urine Glucose Negative Bedside Urine Bilirubin - Negative Bedside Urine Ketone +/- 5 Urine Specific [place] 1.010 Bedside Urine Occult Blood + Bedside Urine pH 6.0 Bedside Urine Protein - Negative Bedside Urine Urobilinogen - Negative Bedside Urine Nitrite - Negative Bedside Urine Leukocytes +++ 500 Esterase MDM Narrative Medical decision making narrative: Patient has recurrence of her chronic intermittent abdominal pain which at times is diverticulitis. However she has a unremarkable lab work with no elevated WBCs. Also abdomen is soft and nontender. Pain is now mostly in the rectum and on exam there is no obvious source of pain other than inflammation from possible recent diarrhea. No hemorrhoids, abscesses or fissure. Plan is hydration, rest and monitor symptoms. May use [id number] hemorrhoid creams for irritated anus/rectum but no hemorrhoids are present. Follow up with primary care tomorrow by phone and then in person as scheduled by her doctor. Discharge Plan Departure Patient Disposition: Home Clinical Impression: Abdominal pain, lower, Anal or rectal pain Instructions: DI for Abdominal Pain-Adult Activity Restrictions/Additional Instructions: Assessment: 1. Lower abdominal pain improving with negative lab work. Does not appear to be diverticulitis 2. Rectal pain with negative exam other than irritation of the rectum. No abscess or hemorrhoid. Plan Hydration, rest and supportive care with bland and soft diet. May use Sitz baths or hemorrhoid creams for rectal irritation. No hemorrhoids evident. Contact your doctor tomorrow morning to discuss symptoms and follow up. Prescriptions: No Action clobetasol 0.05 % ointment 1 applic TOP .COMPLEX Qty: 30 4RF Rx Instructions: Apply small amount to external genitalia 3x/wk estradiol 0.01 % (0.1 mg/gram) cream 0.5 appful vaginal 4XW Qty: 42.5 3RF lidocaine 4 % gel 1 applic topical QD-BID PRN (Reason: pain) Qty: 30 2RF Rx Instructions: Apply small amount to perineal area as needed for discomfort multivitamin Tablet 1 tab PO DAILY Probiotic 1 cap PO DAILY Vitamin B-12 1 tab PO DAILY Vitamin C 1 tab PO DAILY fiber 1 tab PO DAILY magnesium 1 tab PO DAILY Referrals: Ori Knight MD [Primary Care Provider, Family Practice] Stand Alone Forms: Patient Portal/API
[2025-06-28 22:16] VITALS: BP 128/63; PULSE 90; RESP 20; O2SAT 97
== END 2025-06-28 22:19 | disposition home or self-care (01) ==
PROVIDERS: Student in an Organized Health Care Education/Training Program; Emergency Provider Emergency Medicine; PCP Family Medicine
DX: R10.30 Lower abdominal pain, unspecified (principal); K62.89 Other specified diseases of anus and rectum
CPT/HCPCS: 36415; 80053; 81003; 81015; 83690; 85025; 87086; 99283

== ENCOUNTER → 2025-07-02 13:38 | Outpatient (CLI) | payer MEDICARE, OTHER, SELFPAY ==
--- NOTE | 2025-07-02 13:40 | DI.CT.S_ITS ---
PROCEDURE: CT ABDOMEN PELVIS W CON INDICATIONS: Diverticulitis TECHNIQUE: After the administration of intravenous contrast, axial sections acquired from the lung bases to the pubic symphysis. Coronal and sagittal reformats were performed. For radiation dose reduction, the following was used: automated exposure control, adjustment of mA and/or kV according to patient size. COMPARISON: [facility], CT, CT ABDOMEN PELVIS W CON, 03/31/2024, 12:29. FINDINGS: Image quality: Diagnostic. Lower Chest: No consolidation or pleural effusion. Moderate hiatal hernia. ABDOMEN: Liver: No solid mass. Gallbladder: No radiopaque gallstones or wall thickening. Biliary ducts: No biliary dilation. Pancreas: No ductal dilation. Spleen: Size is within normal limits. Adrenal Glands: No adrenal nodules. Kidneys and Ureters: No hydronephrosis. No solid mass. No complex renal cystic lesion which requires follow up. Stomach and Bowel: There is no bowel dilatation. Diverticulosis seen again in the left colon. There is significant wall thickening involving the mid to distal sigmoid as well as the rectum, with adjacent moderate inflammatory changes, extending in the presacral region. There is a gas and fluid collection seen in the posterior cul the sac measuring 4.9 x 4.2 x 3.3 cm. Some extraluminal gas and fluid is also seen posteriorly along the sigmoid. Peritoneum: No abnormal intraperitoneal fluid. No free air. Ventral Wall: No significant ventral hernia. Abdominal Nodes: No retroperitoneal or mesenteric adenopathy by size criteria. Vessels: Aorta and inferior vena cava are normal in size. PELVIS: Pelvic Organs: Unremarkable. Bladder: No bladder wall thickening, accounting for underdistention. Pelvic Nodes: No enlarged lymph nodes. Miscellaneous: No inguinal hernias are seen. Bones: No aggressive osseous abnormality. IMPRESSION: 1. Inflammatory process of the rectosigmoid, may be due to proctosigmoiditis, somewhat less likely diverticulitis. 2. Findings of contained perforation, with an abscess in the posterior cul de sac measuring up to 4.9 cm. Findings discussed with the referring provider Dictated by: Ambrocio Gonzalez M.D. on 07/02/2025 at 18:22 Approved by: Ambrocio Gonzalez M.D. on 07/02/2025 at 18:31
== END ==
LOC: CT 13:40
PROVIDERS: PCP Family Medicine; Referring Provider Family Medicine; Visit Provider Family Medicine
DX: K57.92 Diverticulitis of intestine, part unspecified, without perforation or abscess without bleeding (principal); K44.9 Diaphragmatic hernia without obstruction or gangrene; N73.5 Female pelvic peritonitis, unspecified
CPT/HCPCS: 74177; Q9967